=== PATIENT | male | born 1950 | race Caucasian/White ===

== ENCOUNTER 2016-10-31 15:58 | Emergency (ER) | payer MEDICARE, OTHER ==
[~2016-10-31] VITALS: Ht 180.3 cm; Wt 101.7 kg
[2016-10-31] MEDS ORDERED: DICL1GEL3 TOP (16:24)
[2016-10-31] MEDS ORDERED: PROB1TAB PO (16:24)
[2016-10-31] MEDS ORDERED: GLIM4TAB PO (16:24)
[2016-10-31] MEDS ORDERED: VITA-112 PO (16:24)
[2016-10-31] MEDS ORDERED: [UNRECOGNIZED DRUG - CODE] INJ (16:24)
[2016-10-31] MEDS ORDERED: OMEP40CA2 PO (16:24)
[2016-10-31] MEDS ORDERED: METO50TA7 PO (16:24)
[2016-10-31] MEDS ORDERED: LISI10TA4 PO (16:24)
[2016-10-31] MEDS ORDERED: METF10004 PO (16:24)
[2016-10-31] MEDS ORDERED: NIAC250C13 PO (16:24)
[2016-10-31] MEDS ORDERED: VITA500064 PO (16:24)
[2016-10-31] MEDS ORDERED: ANAS1TAB PO (16:24)
[2016-10-31] MEDS ORDERED: NITROGLYCERIN 0.4 MG SUBL TABLET SL PRN (16:30)
[2016-10-31] MEDS ORDERED: ASPIRIN 81 MG CHEW TABLET PO ONE (16:30)
--- NOTE | 2016-10-31 16:41 | REP ---
Clinical: Chest pain . Comparison: 11/30/2005 . Technique: PA and lateral. Findings: The mediastinum and cardiac silhouette are normal. The lung abdalla are clear and without acute consolidation, effusion, or pneumothorax. The skeletal structures are intact and normal. Impression: No obvious acute cardiopulmonary process appreciated. Signed by London Walden MD 10/31/2016 04:33 P
[2016-10-31 17:05] LABS: BASO % 0.7 % (0.0-1.0); EOS # 0.1 K/mm3 (0.0-0.50); EOS % 1.3 % (0.0-3.0); LARGE UNSTAINED CELL # 0.2 K/mm3 (0.0-0.4); LARGE UNSTAINED CELL % 3.8 % (0.0-4.0); LYMPH # 1.9 K/mm3 (1.5-4.5); LYMPH % 29.6 % (24.0-44.0); MEAN CORPUSCULAR HEMOGLOBIN 29.1 pg (27.0-33.0); MEAN CORPUSCULAR HGB CONC 32.8 g/dl (32.0-36.5); MEAN CORPUSCULAR VOLUME 88.5 fl (80.0-96.0); MONO # 0.4 K/mm3 (0.0-0.8); MONO % 5.7 % (0.0-5.0); NEUTROPHILS # 3.8 K/mm3 (1.8-7.7); PLATELET COUNT, AUTOMATED 202 k/mm3 (150-450); RED CELL DISTRIBUTION WIDTH 14.2 % (11.5-14.5); WHITE BLOOD COUNT 6.4 K/mm3 (4.0-10.0)
[2016-10-31 17:13] LABS: INR 1.01
[2016-10-31 17:35] LABS: ALBUMIN/GLOBULIN RATIO 1.11 (1.00-1.93); ALKALINE PHOSPHATASE 62 U/L (45-117); ALT/SGPT 29 U/L (12-78); ANION GAP 8 MEQ/L (8-16); AST/SGOT 20 U/L (15-37); BILIRUBIN,DIRECT 0.1 MG/DL (0.0-0.2); BLOOD UREA NITROGEN 13 MG/DL (7-18); CALCIUM LEVEL 9.5 MG/DL (8.8-10.2); CARBON DIOXIDE LEVEL 29 MEQ/L (21-32); CHLORIDE LEVEL 100 MEQ/L (98-107); CREATININE FOR GFR 1.07 MG/DL (0.70-1.30); GLOMERULAR FILTRATION RATE > 60.0 (>49); GLUCOSE, FASTING 87 MG/DL (80-110); POTASSIUM SERUM 4.8 MEQ/L (3.5-5.1); SODIUM LEVEL 137 MEQ/L (136-145); TOTAL PROTEIN 7.6 GM/DL (6.4-8.2)
[2016-10-31 17:44] LABS: BILIRUBIN,TOTAL 0.6 MG/DL (0.2-1.0)
[2016-10-31 21:36] VITALS: BP 147/92
--- NOTE | 2016-11-02 07:17 | ECGEPIP ---
Stationary ECG Study [facility] - ED Test Date: 2016-10-31 Pat Name: VERA WORKMAN Department: Room: - Gender: M Machine Presser: brianna : 1950 Requested By: Denisse Guerin Order Number: [id number] Reading MD: Denisse Guerin Measurements Intervals [place] Rate: 78 P: 40 [place]: 172 QRS: -49 QRSD: 110 T: 24 QT: 358 QTc: 409 Interpretive Statements SINUS RHYTHM PATTERN CONSISTENT WITH PULMONARY DISEASE LEFT ANTERIOR FASCICULAR BLOCK IRBBB NO PRIOR FOR COMPARISON Electronically Signed On 11-02-2016 7:17:03 EDT by Denisse Guerin
--- NOTE | 2016-11-02 07:19 | ECGEPIP ---
Stationary ECG Study [facility] - ED Test Date: 2016-10-31 Pat Name: VERA WORKMAN Department: Room: - Gender: M Child Development Instructor: jose : 1950 Requested By: DEBRA RAHMAN Order Number: [id number] Reading MD: Denisse Guerin Measurements Intervals [place] Rate: 77 P: 31 [place]: 164 QRS: -50 QRSD: 110 T: 17 QT: 376 QTc: 427 Interpretive Statements SINUS RHYTHM PATTERN CONSISTENT WITH PULMONARY DISEASE LEFT ANTERIOR FASCICULAR BLOCK MODERATE ST DEPRESSION IRBBB SIMILAR 16:20 Electronically Signed On 11-02-2016 7:19:20 EDT by Denisse Guerin
== END 2016-10-31 22:15 | disposition home or self-care (01) ==
LOC: M ED 17:28
DX: R07.89 Other chest pain (principal); E11.9 Type 2 diabetes mellitus without complications; I10 Essential (primary) hypertension; E78.5 Hyperlipidemia, unspecified; K21.9 Gastro-esophageal reflux disease without esophagitis; Z79.84 Long term (current) use of oral hypoglycemic drugs; Z79.899 Other long term (current) drug therapy; Z91.040 Latex allergy status; Z88.8 Allergy status to other drugs, medicaments and biological substances

== ENCOUNTER 2016-11-01 03:55 | Emergency (ER) | payer MEDICARE, OTHER ==
[~2016-11-01] VITALS: Ht 180.3 cm; Wt 100.0 kg
[~2016-11-01 03:55] MED LIST: ANAS1TAB PO; DICL1GEL3 TOP; GLIM4TAB PO; LISI10TA4 PO; METF10004 PO; METO50TA7 PO; NIAC250C13 PO; OMEP40CA2 PO; PROB1TAB PO; VITA-112 PO; VITA500064 PO; [UNRECOGNIZED DRUG - CODE] INJ
[2016-11-01 04:37] LABS: BASO # 0.1 K/mm3 (0.0-0.2); BASO % 0.9 % (0.0-1.0); EOS # 0.1 K/mm3 (0.0-0.50); EOS % 1.3 % (0.0-3.0); LARGE UNSTAINED CELL # 0.2 K/mm3 (0.0-0.4); LARGE UNSTAINED CELL % 3.2 % (0.0-4.0); LYMPH # 1.5 K/mm3 (1.5-4.5); LYMPH % 22.7 % (24.0-44.0); MEAN CORPUSCULAR HEMOGLOBIN 29.4 pg (27.0-33.0); MEAN CORPUSCULAR VOLUME 89.1 fl (80.0-96.0); MONO # 0.4 K/mm3 (0.0-0.8); MONO % 5.1 % (0.0-5.0); NEUTROPHILS # 4.5 K/mm3 (1.8-7.7); NEUTROPHILS % 66.7 % (36.0-66.0); PLATELET COUNT, AUTOMATED 194 k/mm3 (150-450); RED CELL DISTRIBUTION WIDTH 14.2 % (11.5-14.5); WHITE BLOOD COUNT 6.8 K/mm3 (4.0-10.0)
[2016-11-01] MEDS: NITROGLYCERIN 0.4 MG SUBL TABLET SL PRN ×7 (04:55→09:19)
[2016-11-01 05:05] VITALS: BP 125/78
[2016-11-01 05:08] LABS: ALBUMIN/GLOBULIN RATIO 1.18 (1.00-1.93); BILIRUBIN,DIRECT 0.1 MG/DL (0.0-0.2); BILIRUBIN,TOTAL 0.7 MG/DL (0.2-1.0); CALCIUM LEVEL 8.7 MG/DL (8.8-10.2); CREATININE FOR GFR 1.35 MG/DL (0.70-1.30); POTASSIUM SERUM 4.6 MEQ/L (3.5-5.1); TOTAL PROTEIN 7.4 GM/DL (6.4-8.2)
[2016-11-01] MEDS ORDERED: ISOVUE-370 76% 100ML VIAL (Q9967) As Ordered ONE (05:30)
--- NOTE | 2016-11-01 06:47 | REPUSA ---
CLINICAL HISTORY: Dyspnea, exclude PE. TECHNIQUE: Multiple incremental axial, coronal and oblique images are obtained from the thoracic inle t to the upper abdomen. Intravenous contrast material was administered as per pulmonary embolism prot ocol. COMMENTS: Bilateral basilar atelectatic pulmonary changes. There is excellent opacification of pulmonary arterial system without evidence for pulmonary embolism . Aorta is of normal caliber without evidence for dissection or aneurysm. There is no evidence of pleural or parenchymal mass. There are no pleural effusions. There is no evid ence of hilar or mediastinal lymphadenopathy. The heart and great vessels are within normal limits. Images of the upper abdomen demonstrate no evidence of adrenal mass. The bony structures are free of lytic or blastic lesions. Multilevel degenerative changes are seen in volving the visualized thoracolumbar spine. Scattered calcifications are seen involving the aorta and major branches compatible with atherosclero sis. Cholecystectomy. 2.2 cm cyst in the segment 4B of the liver. IMPRESSION: No evidence for pulmonary embolism. Bilateral basilar atelectatic pulmonary changes. Cholecystectomy. 2.2 cm cyst in the segment IVb of the liver. Unremarkable median sternotomy wires. Thank you for your kind referral of this patient.
[2016-11-01] MEDS ORDERED: NITROGLYCERIN 0.3 MG SUBL TAB SL PRN (09:00)
[2016-11-01] MEDS ORDERED: ASPIRIN 81 MG CHEW TABLET PO ONE ×2 (09:30→10:15)
[2016-11-01] MEDS ORDERED: NITROGLYCERIN 2% OINT 1 GM *U/D* PKT TOP ONE (09:30)
[2016-11-01] MEDS ORDERED: HEPARIN DRIP 25,000 UNITS in APPROPRIATE DILUENT 1 EA IV SCH ×2 (09:32→10:04)
[2016-11-01] MEDS ORDERED: HEPARIN 25,000 UNITS/250 ML D5W BAG (100 UNITS/ML) As Ordered ONE (09:40)
[2016-11-01] MEDS ORDERED: HEPARIN SOD (PORCINE) 5000 UNITS/ML VIAL IV ONE (09:45)
[2016-11-01 11:13] VITALS: BP 139/89
--- NOTE | 2016-11-02 07:27 | ECGEPIP ---
Stationary ECG Study [facility] - ED Test Date: 2016-11-01 Pat Name: VERA WORKMAN Department: Room: - Gender: M Media Supervisor: елена : 1950 Requested By: IRA Zazueta Order Number: [id number] Reading MD: Denisse Guerin Measurements Intervals [place] Rate: 77 P: 35 NM: 191 QRS: -44 QRSD: 113 T: 64 QT: 365 QTc: 414 Interpretive Statements SINUS RHYTHM MARKED LEFT AXIS DEVIATION PATTERN CONSISTENT WITH PULMONARY DISEASE INCOMPLETE RIGHT BUNDLE BRANCH BLOCK INFERIOR INFARCT ?AGE, CLINICAL CORRELATION Electronically Signed On 11-02-2016 7:26:50 EDT by Denisse Guerin
--- NOTE | 2016-11-02 07:28 | ECGEPIP ---
Stationary ECG Study [facility] - ED Test Date: 2016-11-01 Pat Name: VERA WORKMAN Department: Room: - Gender: M Utilization Management Rn: JELLY : 1950 Requested By: IRA Zazueta Order Number: [id number] Reading MD: Denisse Guerin Measurements Intervals [place] Rate: 68 P: 41 [place]: 187 QRS: -43 QRSD: 121 T: 69 QT: 380 QTc: 405 Interpretive Statements SINUS RHYTHM MARKED LEFT AXIS DEVIATION RIGHT BUNDLE BRANCH BLOCK INFERIOR INFARCT, ?AGE, CLINICAL CORRELATION, SEEN 4:26 Electronically Signed On 11-02-2016 7:28:13 EDT by Denisse Guerin
--- NOTE | 2016-11-02 07:29 | ECGEPIP ---
Stationary ECG Study [facility] - ED Test Date: 2016-11-01 Pat Name: VERA WORKMAN Department: Room: - Gender: M Operator Helper: JELLY : 1950 Requested By: Denisse Guerin Order Number: [id number] Reading MD: Denisse Guerin Measurements Intervals [place] Rate: 75 P: 31 [place]: 188 QRS: -46 QRSD: 113 T: 34 QT: 377 QTc: 423 Interpretive Statements SINUS RHYTHM PATTERN CONSISTENT WITH PULMONARY DISEASE INCOMPLETE RIGHT BUNDLE BRANCH BLOCK LEFT ANTERIOR FASCICULAR BLOCK ?INFERIOR ARTIFACT AGE, SIMILAR 8:06 Electronically Signed On 11-02-2016 7:28:47 EDT by eDnisse Guerin
== END 2016-11-01 11:19 | disposition short-term general hospital (02) ==
LOC: M ED 05:00
DX: I24.0 Acute coronary thrombosis not resulting in myocardial infarction (principal); I25.2 Old myocardial infarction; I10 Essential (primary) hypertension; Z91.040 Latex allergy status; Z88.8 Allergy status to other drugs, medicaments and biological substances
CPT/HCPCS: 71275; 80048; 80076; 82550; 82553; 83690; 84443; 84484; 85025; 93005; 93041; 94760; 96365; 96376; 99285; Q9967

== ENCOUNTER → 2016-12-05 | Outpatient (RCR) | payer MEDICARE, OTHER | LOC: M CR 11-25 11:58 | PROVIDERS: ATTEND Internal Medicine Cardiovascular Disease | DX: I25.10 Atherosclerotic heart disease of native coronary artery without angina pectoris (principal); Z98.61 Coronary angioplasty status ==

== ENCOUNTER → 2017-01-02 | Outpatient (REF) | payer MEDICARE, OTHER ==
[2017-01-02 10:05] LABS: ANION GAP 9 MEQ/L (8-16); BLOOD UREA NITROGEN 11 MG/DL (7-18); CARBON DIOXIDE LEVEL 29 MEQ/L (21-32); CHLORIDE LEVEL 101 MEQ/L (98-107); CREATININE FOR GFR 1.13 MG/DL (0.70-1.30); GLOMERULAR FILTRATION RATE > 60.0 (>49); GLUCOSE, FASTING 152 MG/DL (80-110); POTASSIUM SERUM 4.8 MEQ/L (3.5-5.1); SODIUM LEVEL 139 MEQ/L (136-145)
== END ==
LOC: M LAB REF 09:11
PROVIDERS: ATTEND Physician Assistant Medical
DX: E11.8 Type 2 diabetes mellitus with unspecified complications (principal)

== ENCOUNTER 2017-01-04 08:35 | Outpatient (RCR) | payer MEDICARE, OTHER | END 2017-01-05 | LOC: M CR 08:35 | PROVIDERS: ATTEND Internal Medicine Cardiovascular Disease | DX: Z51.89 Encounter for other specified aftercare (principal); I25.10 Atherosclerotic heart disease of native coronary artery without angina pectoris; Z98.61 Coronary angioplasty status ==

== ENCOUNTER 2017-01-18 09:11 | Outpatient (RCR) | payer MEDICARE, OTHER | END 2017-02-04 | LOC: M CR 09:11 | PROVIDERS: ATTEND Internal Medicine Cardiovascular Disease | DX: Z51.89 Encounter for other specified aftercare (principal); I25.10 Atherosclerotic heart disease of native coronary artery without angina pectoris; Z98.61 Coronary angioplasty status ==

== ENCOUNTER → 2022-11-17 | Outpatient (CLI) | payer MEDICARE, OTHER ==
[~2022-11-17] MED LIST changes: -ANAS1TAB PO; +ANAS1TAB2 PO; +DEPO200I7 INJ; -GLIM4TAB PO; +GLIM4TAB5 PO; +LISI10TA22 PO; -LISI10TA4 PO; -OMEP40CA2 PO; +OMEP40CA4 PO; -VITA500064 PO; +VITA500065 PO; -[UNRECOGNIZED DRUG - CODE] INJ
[2022-11-17 12:49] LABS: BASO % 0.8 % (0.0-1.0); EOS # 0.1 10^3/uL (0.0-0.5); EOS % 2.3 % (0.0-3.0); HEMATOCRIT 46.2 % (42.0-52.0); HEMOGLOBIN 14.1 g/dl (13.5-17.5); LYMPH # 1.4 10^3/uL (1.5-5.0); MEAN CORPUSCULAR HEMOGLOBIN 26.8 pg (27.0-33.0); MEAN CORPUSCULAR HGB CONC 30.5 g/dl (32.0-36.5); MEAN CORPUSCULAR VOLUME 87.7 fl (80.0-96.0); MONO # 0.5 10^3/uL (0.0-0.8); MONO % 9.6 % (2.0-8.0); NEUTROPHILS # 3.1 10^3/uL (1.5-8.5); NEUTROPHILS % 59.9 % (36.0-66.0); PLATELET COUNT, AUTOMATED 144 10^3/uL (150-450); RED BLOOD COUNT 5.27 10^6/uL (4.30-6.10); WHITE BLOOD COUNT 5.2 10^3/uL (4.0-10.0)
[2022-11-17 13:17] LABS: CREATININE, URINE 103.7 MG/DL; MAU/CREAT RATIO 97.3 MCG/MG (0.0-30.0)
[2022-11-17 13:20] LABS: ALBUMIN 4.1 G/DL (3.2-5.2); ALKALINE PHOSPHATASE 52 U/L (46-116); ALT/SGPT 18 U/L (7.0-40); AST/SGOT 19 U/L (<34); BILIRUBIN,TOTAL 0.6 MG/DL (0.3-1.2); BLOOD UREA NITROGEN 13 MG/DL (9-23); CALCIUM LEVEL 9.7 MG/DL (8.3-10.6); CARBON DIOXIDE LEVEL 28 MMOL/L (20-31); CHLORIDE LEVEL 101 MMOL/L (98-107); CHOLESTEROL LEVEL 124 MG/DL (<200); CHOLESTEROL RISK RATIO 3.78 (<5); GLOMERULAR FILTRATION RATE > 60.0 (>42); GLUCOSE, FASTING 154 MG/DL (74-106); HDL CHOLESTEROL 32.8 MG/DL (>40); LDL CHOLESTEROL 33.8 MG/DL (<100); NON-HDL-C 91.2 MG/DL; POTASSIUM SERUM 4.4 MMOL/L (3.5-5.1); SODIUM LEVEL 137 MMOL/L (136-145); THYROID STIMULATING HORMONE 1.004 uIU/ML (0.55-4.78); TOTAL 25(OH) VITAMIN D 40.8 NG/ML (20.0-100.0); TOTAL PROTEIN 6.8 G/DL (5.7-8.2); TRIGLYCERIDES LEVEL 287 MG/DL (<150)
[2022-11-17 13:21] LABS: FREE T4 1.29 NG/DL (0.89-1.76)
[2022-11-17 13:50] LABS: HEMOGLOBIN A1c 7.4 % (4.0-6.0)
== END ==
LOC: M WUC 09:25
PROVIDERS: ATTEND Nurse Practitioner Family
DX: E11.8 Type 2 diabetes mellitus with unspecified complications (principal); I10 Essential (primary) hypertension; E03.9 Hypothyroidism, unspecified; E55.9 Vitamin D deficiency, unspecified

== ENCOUNTER → 2023-01-20 | Outpatient (CLI) | payer MEDICARE, OTHER ==
[~2023-01-20] MED LIST changes: +DICL100G10 TOP; -DICL1GEL3 TOP
[2023-01-20 14:40] LABS: FREE T4 1.3 NG/DL (0.89-1.76); THYROID STIMULATING HORMONE 1.108 uIU/ML (0.55-4.78)
== END ==
LOC: M WUC 10:36
PROVIDERS: ATTEND Nurse Practitioner Family
DX: E03.9 Hypothyroidism, unspecified (principal)

== ENCOUNTER → 2023-10-24 | Outpatient (CLI) | payer MEDICARE, OTHER ==
[2023-10-24 11:14] LABS: HEMOGLOBIN A1c 7.3 % (4.0-6.0)
[2023-10-24 11:32] LABS: CREATININE, URINE 127.9 MG/DL
[2023-10-24 11:34] LABS: ALBUMIN 4.1 G/DL (3.2-5.2); ALKALINE PHOSPHATASE 46 U/L (46-116); ALT/SGPT 19 U/L (7.0-40); AST/SGOT 16 U/L (<34); BLOOD UREA NITROGEN 13 MG/DL (9-23); CALCIUM LEVEL 8.5 MG/DL (8.3-10.6); CARBON DIOXIDE LEVEL 29 MMOL/L (20-31); CHLORIDE LEVEL 101 MMOL/L (98-107); CHOLESTEROL LEVEL 85 MG/DL (<200); CHOLESTEROL RISK RATIO 2.74 (<5); CREATININE FOR GFR 1.08 MG/DL (0.70-1.30); GLOMERULAR FILTRATION RATE > 60.0 (>42); GLUCOSE, FASTING 103 MG/DL (74-106); LDL CHOLESTEROL 7.2 MG/DL (<100); POTASSIUM SERUM 3.9 MMOL/L (3.5-5.1); SODIUM LEVEL 135 MMOL/L (136-145); TOTAL PROTEIN 6.8 G/DL (5.7-8.2); TRIGLYCERIDES LEVEL 234 MG/DL (<150)
[2023-10-24 11:36] LABS: FREE T4 1.79 NG/DL (0.89-1.76)
[2023-10-24 11:55] LABS: THYROID STIMULATING HORMONE 0.245 uIU/ML (0.55-4.78)
== END ==
LOC: M WUC 09:02
PROVIDERS: ATTEND Nurse Practitioner Family
DX: E11.8 Type 2 diabetes mellitus with unspecified complications (principal); I10 Essential (primary) hypertension; E03.9 Hypothyroidism, unspecified

== ENCOUNTER → 2024-01-23 | Outpatient (CLI) | payer MEDICARE, OTHER ==
[2024-01-23 10:03] LABS: BASO # 0.1 10^3/uL (0.0-0.2); BASO % 0.9 % (0.0-1.0); EOS # 0.1 10^3/uL (0.0-0.5); EOS % 1.6 % (0.0-3.0); HEMOGLOBIN 14.6 g/dl (13.5-17.5); LYMPH # 1.6 10^3/uL (1.5-5.0); LYMPH % 28.1 % (24.0-44.0); MEAN CORPUSCULAR HEMOGLOBIN 27.7 pg (27.0-33.0); MEAN CORPUSCULAR HGB CONC 31.1 g/dl (32.0-36.5); MEAN CORPUSCULAR VOLUME 89.2 fl (80.0-96.0); MONO # 0.6 10^3/uL (0.0-0.8); MONO % 9.7 % (2.0-8.0); NEUTROPHILS # 3.4 10^3/uL (1.5-8.5); NEUTROPHILS % 59.3 % (36.0-66.0); PLATELET COUNT, AUTOMATED 154 10^3/uL (150-450); RED BLOOD COUNT 5.27 10^6/uL (4.30-6.10); WHITE BLOOD COUNT 5.7 10^3/uL (4.0-10.0)
[2024-01-23 10:38] LABS: ALBUMIN 4.4 G/DL (3.2-5.2); ALKALINE PHOSPHATASE 58 U/L (46-116); ALT/SGPT 16 U/L (7.0-40); AST/SGOT 13 U/L (<34); BILIRUBIN,TOTAL 0.5 MG/DL (0.3-1.2); BLOOD UREA NITROGEN 16 MG/DL (9-23); CALCIUM LEVEL 9.2 MG/DL (8.3-10.6); CARBON DIOXIDE LEVEL 30 MMOL/L (20-31); CHLORIDE LEVEL 100 MMOL/L (98-107); CREATININE FOR GFR 1.19 MG/DL (0.70-1.30); GLOMERULAR FILTRATION RATE > 60.0 (>42); GLUCOSE, FASTING 176 MG/DL (74-106); MAGNESIUM LEVEL 1.8 MG/DL (1.8-2.4); POTASSIUM SERUM 4.3 MMOL/L (3.5-5.1); SODIUM LEVEL 136 MMOL/L (136-145); TOTAL PROTEIN 7.3 G/DL (5.7-8.2)
== END ==
LOC: M WUC 08:42
PROVIDERS: ATTEND Registered Nurse
DX: K52.9 Noninfective gastroenteritis and colitis, unspecified (principal)

== ENCOUNTER → 2025-01-21 | Outpatient (CLI) | payer MEDICARE, OTHER ==
[2025-01-21 13:50] LABS: FREE T4 1.77 NG/DL (0.89-1.76)
[2025-01-21 14:11] LABS: ESTIMATED AVERAGE GLUCOSE 114.0 MG/DL (60-110)
== END ==
LOC: M WUC 08:58
PROVIDERS: ATTEND Nurse Practitioner Family
DX: E11.8 Type 2 diabetes mellitus with unspecified complications (principal); E03.9 Hypothyroidism, unspecified